=== PATIENT | female | born 2005 | race Asian ===

== ENCOUNTER 2024-02-03 15:34 | Outpatient (CLI) | payer OTHER | END 2024-02-03 18:37 | disposition home or self-care (01) | LOC: MRD 15:34 | PROVIDERS: ATTEND Family Medicine | DX: R06.02 Shortness of breath (principal) | CPT/HCPCS: 71046 ==

== ENCOUNTER 2024-02-28 11:20 | Emergency (ER) | payer OTHER ==
[~2024-02-28] VITALS: Ht 165.1 cm; Wt 45.4 kg
[2024-02-28 11:25] VITALS: BP 120/83; PULSE 108; RESP 18; TEMP 97.6; O2SAT 98
[2024-02-28 11:55] LABS: BASOPHILS # (AUTO) 0.1 K/uL (0.00-0.22); BASOPHILS % (AUTO) 1.4 % (0.0-2.0); EOSINOPHILS # (AUTO) 0.3 K/uL (0-0.4); HEMATOCRIT 40.8 % (36-48); HEMOGLOBIN 13.9 g/dL (12.0-16.0); LYMPHOCYTES # (AUTO) 1.7 K/uL (2.5-16.5); LYMPHOCYTES % (AUTO) 40.2 % (20.5-51.1); MEAN CORPUSCULAR HEMOGLOBIN 32 pg (27-31); MEAN CORPUSCULAR HGB CONC 34 g/dL (33-37); MEAN CORPUSCULAR VOLUME 92.2 fL (80-94); MONOCYTES # (AUTO) 0.3 K/uL (0.8-1.0); MONOCYTES % (AUTO) 7.8 % (1.7-9.3); NEUTROPHILS # (AUTO) 1.9 K/uL (1.8-7.7); NEUTROPHILS % (AUTO) 44.6 % (42.2-75.2); PLATELET COUNT (AUTO) 340 K/uL (140-450); RED BLOOD CELL COUNT(AUTO) 4.42 MIL/uL (4.20-5.40); RED CELL DISTRIBUTION WIDTH 12.8 % (11.6-13.7); WHITE BLOOD COUNT (AUTO) 4.2 K/uL (4.5-11.0)
[2024-02-28 12:12] LABS: ANION GAP 7.1 (8-16); CALCIUM 9.3 mg/dL (8.5-10.1); CARBON DIOXIDE 32.8 mmol/L (21-32); CREATININE 0.8 mg/dL (0.6-1.3); POTASSIUM 3.9 mmol/L (3.5-5.1)
[2024-02-28 13:58] VITALS: O2SAT 98
[2024-02-28] MEDS ORDERED: CYCL-711 PO (14:35)
[2024-02-28] MEDS ORDERED: LID5T TP (14:35)
[2024-02-28 14:54] VITALS: BP 120/70; PULSE 78; RESP 18; TEMP 98.1; O2SAT 98
== END 2024-02-28 14:56 | disposition home or self-care (01) ==
LOC: MED 11:20
DX: R09.82 Postnasal drip (principal); M54.2 Cervicalgia; J45.909 Unspecified asthma, uncomplicated; Z79.899 Other long term (current) drug therapy; Z88.6 Allergy status to analgesic agent
CPT/HCPCS: 36415; 80048; 85025; 99283

== ENCOUNTER 2024-04-15 06:04 | Emergency (ER) | payer OTHER ==
[~2024-04-15] VITALS: Ht 162.6 cm; Wt 43.1 kg
[~2024-04-15 06:04] MED LIST: CYCL-711 PO; LID5T TP
[2024-04-15 06:06] VITALS: BP 135/88; PULSE 92; RESP 16; TEMP 97.4; O2SAT 100
[2024-04-15 06:20] VITALS: O2SAT 98
[2024-04-15 06:29] VITALS: O2SAT 98
== END 2024-04-15 06:32 | disposition home or self-care (01) ==
LOC: MED 06:04
DX: H92.02 Otalgia, left ear (principal); J45.909 Unspecified asthma, uncomplicated; F12.90 Cannabis use, unspecified, uncomplicated; Z79.899 Other long term (current) drug therapy; Z88.6 Allergy status to analgesic agent
CPT/HCPCS: 99281